=== PATIENT | male | born 1960 | race American Indian/Alaskan Native ===

== ENCOUNTER 2020-05-24 12:15 | Day surgery (SDC) | payer MEDICAID ==
[2020-05-22 09:50] LABS: Hematocrit 45.8 % (35.5-45.6); Hemoglobin 15.7 gm/dl (11.8-15.2); Mean Corpuscular HGB Conc 34 % (32-34); Mean Corpuscular Volume 93 fl (84-94); Platelet Count 214 K/mm3 (140-440); Red Blood Count 4.92 M/mm3 (3.65-5.03); Red Cell Distribution Width 14.4 % (13.2-15.2)
[2020-05-22 10:09] LABS: Alanine Aminotransferase 23 units/L (7-56); Albumin 4.3 g/dL (3.9-5); BUN/Creatinine Ratio 14; Blood Urea Nitrogen 13 mg/dL (9-20); Calcium 9.5 mg/dL (8.4-10.2); Hemolysis Index 4
[2020-05-24] MEDS ORDERED: HYDROmorphone 1 MG/1 ML INJ IV PRN ×2 (13:33)
[2020-05-24] MEDS ORDERED: ONDANSETRON 4 MG/2 ML INJ IV PRN (13:33)
--- NOTE | 2020-05-24 13:33 | Anesthesia Day of Surgery ---
Anesthesia Day of Surgery - Day of Surgery Patient Examined: Yes Patient H&P Reviewed: Yes Patient is NPO: Yes Beta Blockers: Yes
--- NOTE | 2020-05-24 13:35 | Anesthesia Consultation ---
Anesthesia Consult and Med Hx Date of service: 05/24/20 - Airway Anesthetic Teeth Evaluation: Edentulous ROM Head & Neck: Adequate Mental/Hyoid Distance: Adequate Mallampati Class: Class II Intubation Access Assessment: Good - Pre-Operative Health Status ASA Pre-Surgery Classification: ASA3 Proposed Anesthetic Plan: General - Pulmonary Hx Smoking: Yes Hx Asthma: No COPD: Yes (DAILY INHALER) Hx Pneumonia: No Hx Sleep Apnea: No (TESTED NO RESULTS YET- SNORES) - Cardiovascular System Hx Hypertension: Yes Hx Heart Attack/AMI: No Hx Pacemaker: No Hx Heart Murmur: No - Central Nervous System Hx Back Pain: Yes (ALSO NECK PAIN) Hx Psychiatric Problems: No - Endocrine Hx End Stage Renal Disease: No Hx Cirrhosis: No Hx Liver Disease: No (HAD [ HEP C ] TX AT [place] NEG NOW) - Hematic Hx Anemia: No Hx Sickle Cell Disease: No - Other Systems Hx Alcohol Use: Yes (OCC BEER) Hx Substance Use: No Hx Cancer: No
[2020-05-24] MEDS ORDERED: LACTATED RINGERS 1,000 ML IV SCH (14:00)
[2020-05-24] MEDS ORDERED: MIDAZOLAM 2 MG/2 ML INJ IV NR (14:00)
[2020-05-24] MEDS ORDERED: BUPIVACAINE/PF (0.25%) 2.5 MG/ML 30 ML VIAL INFILTRATI ONE (14:14)
[2020-05-24] MEDS ORDERED: propofoL 200 MG/20 ML VIAL IV ONE (14:14)
[2020-05-24] MEDS ORDERED: LIDOCAINE (1%) 10 MG/1 ML VIAL 20 ML MDV ONE (14:14)
[2020-05-24] MEDS ORDERED: LIDOCAINE MPF (2%) 20 MG/1 ML VIAL 5 ML ONE (14:15)
[2020-05-24] MEDS ORDERED: fentaNYL 100 MCG/2 ML INJ ONE (14:15)
[2020-05-24] MEDS ORDERED: ceFAZolin/STERILE WATER 2 GM/20 ML SYRINGE IV NR (15:00)
--- NOTE | 2020-05-24 15:28 | Discharge Summary ---
Short Stay Discharge Plan Activity: other (no straining ) Weight Bearing Status: Full Weight Bearing Diet: low fat, low cholesterol, low salt Wound: keep clean and dry, change dressing Special Instructions: other (give 4 x4 change dressing ) Durable Medical Equipment Needed Upon Discharge: other (ice packs in RR and x 24 hrs ) Follow up with: ANDREA ESCOBAR MD [Primary Care Provider] - 7 Days FRANK VELEZ MD [Staff Physician] - 05/25/20
--- NOTE | 2020-05-24 15:29 | Post Operative Note ---
Date of procedure: 05/24/20 Pre-op diagnosis: r hydrocele Post-op diagnosis: same Findings: 200 ccs Procedure: r hydrocelectomy Anesthesia: GETA Surgeon: FRANK VELEZ Estimated blood loss: minimal Pathology: list (sac) Specimen disposition: to lab Disposition: PACU
--- NOTE | 2020-05-24 15:47 | Operative Report ---
PREOPERATIVE DIAGNOSIS: Large right hydrocele. POSTOPERATIVE DIAGNOSIS: Large right hydrocele. PROCEDURE: Right scrotal exploration, right hydrocelectomy. SURGEON: Dr. Vargas. ANESTHESIA: General. FINDINGS: This is a gentleman with large hydrocele, now presents for treatment. He has intermittent pain. DESCRIPTION OF PROCEDURE: The patient was brought to the operating room and placed on the operating table. Following induction of anesthesia, placed in supine position, prepped and draped in usual sterile fashion. An oblique incision made over the hemiscrotum, carried through the tunica vaginalis. Hemostasis was assured. The tunica was opened approximately 200 mL of clear yellow fluid was evacuated. At this point, large amount of excess tunica was excised and oversewn with 3-0 chromic. Then a bottleneck was also created. The patient tolerated the procedure well. Wound was irrigated. A 0.5 inch Rock was placed in the dependent portion of the scrotum and secured with silk. Superficial fascia was closed with 3-0 chromic, skin with 3-0 chromic. The patient tolerated the procedure well. Minimal blood loss, less than 10 mL. Brought to recovery in stable condition. JOB# [id number] HA/VINH
[2020-05-24 16:36] VITALS: BP 142/75
--- NOTE | 2020-05-24 19:04 | Post Anesthesia Evaluation ---
- Post Anesthesia Evaluation Patient Participated: Yes Airway Patent: Yes Stable Respiratory Function: Yes Nausea/Vomiting: No Temp > 96.8F: Yes Pain Manageable: Yes Adequeate Hydration: Yes Anesthesia Complications: No Block Receding Appropriately: Not Applicable Patient on Ventilator: No
== END 2020-05-24 12:16 | disposition home or self-care (01) ==
LOC: OR 12:15
PROVIDERS: ATTEND Urology
DX: N43.2 Other hydrocele (principal); Z20.828 Contact with and (suspected) exposure to other viral communicable diseases; I10 Essential (primary) hypertension; J44.9 Chronic obstructive pulmonary disease, unspecified; M19.90 Unspecified osteoarthritis, unspecified site; Z96.642 Presence of left artificial hip joint; Z72.89 Other problems related to lifestyle; Z79.899 Other long term (current) drug therapy; Z87.891 Personal history of nicotine dependence; Z98.890 Other specified postprocedural states
CPT/HCPCS: 36415; 55040; 80053; 82962; 85027; 88302; J0690; J2250; J2704; J3010; J7120; U0003

== ENCOUNTER 2022-05-18 16:49 | Emergency (ER) | payer MEDICAID ==
[2022-05-18] MEDS ORDERED: HYDROmorphone 0.5 MG/0.5 ML INJ IV ONE ×2 (17:36→22:20)
[2022-05-18] MEDS ORDERED: SODIUM CHLORIDE 0.9% 500 ML 500 ML IV ONE (17:37)
--- NOTE | 2022-05-18 17:42 | Emergency Department Report ---
ED General Adult HPI - General Chief complaint: Pain General Stated complaint: BACK AND LEG PAIN PUI?: No Time Seen by Provider: 05/18/22 17:16 Source: patient, EMS Mode of arrival: Stretcher Limitations: Physical Limitation - History of Present Illness Initial comments: This is a pleasant 62-year-old male with medical history of diabetes, hypertension, lumbar fusion and also scoliosis who is on oxycodone 5 mg every 4- 6 hours however the patient said that he only takes as needed. The reason patient came in today with concerns of lower back pain so severe that he is not able to walk. She denies any trauma or injuries. Patient said that he last took his oxycodone 5 mg this noon bout 5 hours ago. Patient denies saddle anesthesia or bowel/bladder incontinence. Patient current denies any fever chill night sweat dizziness blurred vision lightheadedness headache tinnitus ear pain runny nose sore throat loss of taste loss smell chest pain palpitation short breath cough abdominal pain nausea vomiting diarrhea constipation myalgia new rash and heat or cold intolerance. Severity scale (0 -10): 10 - Related Data Home Medications Medication Instructions Recorded Confirmed Last Taken HYDROcodone/APAP 7.5-325 [[place] 7.5 mg PO Q6HR PRN 05/15/20 05/15/20 Unknown 7.5/325] Ipratropium/Albuterol Sulfate 1 puff INHALATION PRN PRN 05/15/20 05/15/20 Unknown [Combivent Respimat] Lisinopril/Hydrochlorothiazide 20 mg PO Q2W 05/15/20 05/15/20 Unknown Miralax 1 cap PO DAILY 05/15/20 05/24/20 05/23/20 09:00 One-Daily Multi-Vitamin 1 tab PO PRN 05/15/20 05/15/20 Unknown Pregabalin [Lyrica] 300 mg PO BID 05/15/20 05/24/20 05/23/20 18:00 Sitagliptin Phos/Metformin HCl 50 mg PO BID 05/15/20 05/24/20 05/23/20 19:00 [Janumet 50-500 mg Tablet] carvediloL [Coreg] 12.5 mg PO BID 05/15/20 05/24/20 05/24/20 08:00 Previous Rx's Medication Instructions Recorded Last Taken Type Oxycodone HCl/Acetaminophen 1 each PO Q6HR PRN #9 05/18/22 Unknown Rx [Percocet 7.5/325 mg] Potassium Chloride [K-Dur] 20 meq PO DAILY #4 tab 05/18/22 Unknown Rx Allergies Allergy/AdvReac Type Severity Reaction Status Date / Time No Known Allergies Allergy Verified 05/16/20 12:14 ED Review of Systems ROS: Stated complaint: BACK AND LEG PAIN Other details as noted in HPI Comment: All other systems reviewed and negative Constitutional: no symptoms reported, see HPI Eyes: as per HPI ENT: as per HPI Respiratory: no symptoms reported, see HPI Cardiovascular: as per HPI Endocrine: no symptoms reported, see HPI Gastrointestinal: as per HPI Musculoskeletal: back pain, arthralgia Skin: as per HPI Neurological: as per HPI, weakness Psychiatric: as per HPI Hematological/Lymphatic: as per HPI ED Past Medical Hx - Past Medical History Previous Medical History?: Yes Hx Hypertension: Yes Hx Heart Attack/AMI: No Hx Congestive Heart Failure: No Hx Diabetes: Yes Hx GERD: No Hx Liver Disease: No (HAD [ HEP C ] TX AT [place] NEG NOW) Hx Sickle Cell Disease: No Hx Arthritis: Yes Hx Kidney Stones: No Hx Asthma: No Hx COPD: Yes (DAILY INHALER) Hx Tuberculosis: No Hx HIV: No - Surgical History Hx Pacemaker: No - Social History Smoking Status: Former Smoker - Medications Home Medications: Home Medications Medication Instructions Recorded Confirmed Last Taken Type HYDROcodone/APAP 7.5-325 [[place] 7.5 mg PO Q6HR PRN 05/15/20 05/15/20 Unknown History 7.5/325] Ipratropium/Albuterol Sulfate 1 puff INHALATION PRN PRN 05/15/20 05/15/20 Unknown History [Combivent Respimat] Lisinopril/Hydrochlorothiazide 20 mg PO Q2W 05/15/20 05/15/20 Unknown History Miralax 1 cap PO DAILY 05/15/20 05/24/20 05/23/20 09:00 History One-Daily Multi-Vitamin 1 tab PO PRN 05/15/20 05/15/20 Unknown History Pregabalin [Lyrica] 300 mg PO BID 05/15/20 05/24/20 05/23/20 18:00 History Sitagliptin Phos/Metformin HCl 50 mg PO BID 05/15/20 05/24/20 05/23/20 19:00 History [Janumet 50-500 mg Tablet] carvediloL [Coreg] 12.5 mg PO BID 05/15/20 05/24/20 05/24/20 08:00 History Oxycodone HCl/Acetaminophen 1 each PO Q6HR PRN #9 05/18/22 Unknown Rx [Percocet 7.5/325 mg] Potassium Chloride [K-Dur] 20 meq PO DAILY #4 tab 05/18/22 Unknown Rx ED Physical Exam - General Limitations: Physical Limitation General appearance: alert, in no apparent distress - Head Head exam: Present: atraumatic, normocephalic, normal inspection - Eye Eye exam: Present: normal appearance, PERRL, EOMI Pupils: Present: normal accommodation - ENT ENT exam: Present: normal exam, mucous membranes moist - Neck Neck exam: Present: normal inspection, full ROM - Respiratory Respiratory exam: Present: normal lung sounds bilaterally - Cardiovascular Cardiovascular Exam: Present: regular rate, normal rhythm, normal heart sounds - GI/Abdominal GI/Abdominal exam: Present: soft - Extremities Exam Extremities exam: Present: other (bilateral lower extremity weakness; when I ask the patient to lift up this lower leg one at a time, patient states lower back and pelvic pain worsen.) - Back Exam Back exam: Present: normal inspection, full ROM - Neurological Exam Neurological exam: Present: alert, oriented X3, CN II-XII intact - Psychiatric Psychiatric exam: Present: normal affect, normal mood - Skin Skin exam: Present: normal color ED Course Vital Signs 05/18/22 05/18/22 05/18/22 16:49 18:43 18:48 Temperature 98.1 F Pulse Rate 59 L 66 Respiratory 16 18 Rate Blood Pressure 183/101 154/98 [Left] O2 Sat by Pulse 100 97 97 Oximetry 05/18/22 21:07 Temperature Pulse Rate 59 L Respiratory 15 Rate Blood Pressure [Left] O2 Sat by Pulse 92 Oximetry - Reevaluation(s) Reevaluation #1: 05/18/22 18:54 AFTER DILAUDID, I REEVALUATED THE PATIENT AND PATIENT HIMSELF STATES IT HELPED AND IS NOW MORE ABLE TO MOVE HIS BILATERAL LOWER EXTREMITY DUE TO LESS PAIN. I WILL GIVE PATIENT PERCOCET TO SEE IF IT HELPS WELL. ED Medical Decision Making - Lab Data Result diagrams: 05/18/22 18:44 05/18/22 23:10 Critical care attestation.: If time is entered above; I have spent that time in minutes in the direct care of this critically ill patient, excluding procedure time. ED Disposition Clinical Impression: Hypokalemia, Lower back pain Disposition: 01 HOME / SELF CARE / HOMELESS Is pt being admited?: No Does the pt Need Aspirin: No Condition: Stable Additional Instructions: Make a follow-up appointment with your primary care provider to be seen within 3 to for further outpatient evaluation and recheck of your potassium; in the meantime, continue to take your potassium supplement that's prescribed for you. Also make a follow-up appointment with your pain physician for further medication titration. Prescriptions: Potassium Chloride [K-Dur] 20 meq PO DAILY #4 tab Oxycodone HCl/Acetaminophen [Percocet 7.5/325 mg] 1 each PO Q6HR PRN #9 PRN Reason: Pain Time of Disposition: 23:36
[2022-05-18] MEDS ORDERED: oxyCODONE /ACETAMINOPHEN 5-325MG TAB PO ONE (18:54)
[2022-05-18 19:00] LABS: Hematocrit 40.4 % (35.5-45.6); Hemoglobin 13.8 gm/dl (11.8-15.2); Mean Corpuscular HGB Conc 34 % (32-34); Mean Corpuscular Volume 92 fl (84-94); Platelet Count 208 K/mm3 (140-440); Red Blood Count 4.37 M/mm3 (3.65-5.03); Red Cell Distribution Width 15.4 % (13.2-15.2)
[2022-05-18 20:30] LABS: Alanine Aminotransferase 21 units/L (7-56); Albumin 4.3 g/dL (3.9-5); Blood Urea Nitrogen 8 mg/dL (9-20); Calcium 9.2 mg/dL (8.4-10.2); Hemolysis Index 23
[2022-05-18 20:37] LABS: BUN/Creatinine Ratio 11
[2022-05-18] MEDS ORDERED: POTASSIUM CHLORIDE ER 20 MEQ TAB PO ONE (20:41)
[2022-05-18] MEDS: POTASSIUM CHLORIDE 10 MEQ 10 MEQ/100 ML BAG IV SCH ×2 (21:04→21:51)
[2022-05-18 21:33] LABS: Color,Urine Colorless (Yellow)
[2022-05-18 21:40] LABS: Mucus,Urine FEW /HPF
[2022-05-18 21:43] LABS: RBC,Urine < 1.0 /HPF (0.0-6.0)
[2022-05-18] MEDS ORDERED: SODIUM CHLORIDE 0.9% 1000 ML 1,000 ML IV ONE (21:51)
[2022-05-18 23:31] LABS: Blood Urea Nitrogen 7 mg/dL (9-20); Calcium 9.2 mg/dL (8.4-10.2); Hemolysis Index 17
[2022-05-18 23:44] LABS: BUN/Creatinine Ratio 10
[2022-05-18] MEDS ORDERED: KETOROLAC 30 MG/1 ML INJ IV ONE (23:50)
[2022-05-19 00:34] VITALS: BP 142/114
== END 2022-05-19 00:35 | disposition home or self-care (01) ==
LOC: ED 16:49
DX: E87.6 Hypokalemia (principal); M54.50 Low back pain, unspecified
CPT/HCPCS: 36415; 80048; 80053; 81001; 83735; 83880; 85027; 96365; 96375; 96376; 99284; J1170; J1885; J3480; J7030; J7040; 96361; 96374